=== PATIENT | male | born 1995 | race Caucasian/White ===

== ENCOUNTER 2020-09-07 22:01 | Emergency (ER) | payer MEDICAID ==
[~2020-09-07] VITALS: Ht 175.3 cm; Wt 73.0 kg
[2020-09-08] MEDS ORDERED: LORAZEPAM 1MG TABLET PO ONE (01:45)
[2020-09-08 02:37] VITALS: BP 121/69
[2020-09-08] MEDS ORDERED: MAGNESIUM/ALUMINUM HYDROXIDE/SIMETHICONE 30ML UDC PO STA (02:52)
[2020-09-08] MEDS ORDERED: FAMOTIDINE 20MG TABLET PO ONE (03:00)
[2020-09-08] MEDS ORDERED: FAMO-135 MT (03:32)
== END 2020-09-08 03:37 | disposition home or self-care (01) ==
LOC: ER 22:01
DX: R06.00 Dyspnea, unspecified (principal); R10.9 Unspecified abdominal pain
CPT/HCPCS: 99284